=== PATIENT | male | born 1995 | race Caucasian/White ===

== ENCOUNTER 2018-01-06 07:59 | Emergency (ER) | payer OTHER ==
[2018-01-06 08:22] VITALS: BP 120/63
--- NOTE | 2018-01-06 09:22 | ED ---
Skin Complaint - HPI Summary HPI Summary: 22 yr old with itching and hives upon waking this morning. He states his symptoms have resolved mostly now. He has not had SOB, lip or tongue swelling. He states he has food allergies. Denies fever, chills. He has had some URI symptoms lately . - History of Current Complaint Chief Complaint: UCSkin Time Seen by Provider: 01/06/18 09:05 Stated Complaint: SKIN COMPLAINT Pain Intensity: 0 - Allergy/Home Medications Allergies/Adverse Reactions: Allergies Allergy/AdvReac Type Severity Reaction Status Date / Time legumes Allergy Hives Verified 01/06/18 08:19 orange Allergy Hives Verified 01/06/18 08:19 shellfish derived Allergy Hives Verified 01/06/18 08:19 Home Medications: Home Medications NK [No Home Medications Reported] 01/06/18 [History Confirmed 01/06/18] PMH/Surg Hx/FS Hx/Imm Hx Respiratory History: Reports: Hx Asthma Infectious Disease History: No Infectious Disease History: Denies: Traveled Outside the [place] in Last 30 Days - Family History Known Family History: Positive: None - Social History Occupation: Student Lives: Dormitory/Roommates Alcohol Use: Weekly Substance Use Type: Reports: None Smoking Status (MU): Never Smoked Tobacco Review of Systems Constitutional: Negative Positive: Rash All Other Systems Reviewed And Are Negative: Yes Physical Exam Triage Information Reviewed: Yes Vital Signs On Initial Exam: Initial Vitals Temp Pulse Resp BP Pulse Ox 97.7 F 56 14 120/63 99 01/06/18 08:16 01/06/18 08:16 01/06/18 08:16 01/06/18 08:16 01/06/18 08:16 Vital Signs Reviewed: Yes Appearance: Positive: Well-Appearing, No Pain Distress Skin: Positive: Warm, Skin Color Reflects Adequate Perfusion, Other - no urticari at this point, but there are some scratch salguero for the patient itching his legs and arms. Head/Face: Positive: Normal Head/Face Inspection Eyes: Positive: EOMI ENT: Positive: Pharynx normal Respiratory/Lung Sounds: Positive: Clear to Auscultation, Breath Sounds Present Cardiovascular: Positive: RRR. Negative: Murmur Abdomen Description: Positive: Nontender Musculoskeletal: Positive: Strength/ROM Intact Neurological: Positive: Sensory/Motor Intact, Alert, Oriented to Person Place, Time, CN Intact II-III Diagnostics - Vital Signs Vital Signs Temp Pulse Resp BP Pulse Ox 01/06/18 08:16 97.7 F 56 14 120/63 99 - Laboratory Lab Statement: Any lab studies that have been ordered have been reviewed, and results considered in the medical decision making process. Course/Dx - Course Course Of Treatment: 22 yr old with self limited urticaria. Plan DC home in good condition. use benadryl as needed. - Diagnoses Provider Diagnoses: Urticaria Discharge - Discharge Plan Condition: Good Disposition: HOME Patient Education Materials: Urticaria (ED) Referrals: [facility] [Outside] No Primary Care Phys,NOPCP [Primary Care Provider] - Additional Instructions: take benadryl every six hours for symptoms control. If your symptoms worsen go to the ER.
== END 2018-01-06 09:33 | disposition home or self-care (01) ==
LOC: UCCORT 07:59
DX: L50.9 Urticaria, unspecified (principal)
CPT/HCPCS: 99201; G0463